=== PATIENT | male | born 1970 | race Caucasian/White ===

== ENCOUNTER → 2020-03-13 | Outpatient (CLI) | payer BC ==
[~2020-03-13] MED LIST: NORCO 325 MG-7.1 TAB PO; PRIL40 PO; VENTOLIN0.09 MG IH; ZANTAC 150MG T150 MG PO
== END ==
LOC: ZCOL.LAB 16:26
DX: R05 Cough (principal); R09.81 Nasal congestion; R09.89 Other specified symptoms and signs involving the circulatory and respiratory systems; Z20.828 Contact with and (suspected) exposure to other viral communicable diseases